=== PATIENT | female | born 1970 | race Caucasian/White ===

== ENCOUNTER 2019-01-29 13:02 | Inpatient (IN) | payer SELFPAY ==
[~2019-01-29] VITALS: Ht 154.9 cm; Wt 88.9 kg
[2019-01-29] MEDS ORDERED: SODIUM CHLORIDE 0.9% 500 ML IVB ONE (13:23)
[2019-01-29] MEDS ORDERED: PANTOPRAZOLE 40 MG/10 ML VIAL INJ IV STA (13:23)
[2019-01-29] MEDS ORDERED: MORPHINE SULFATE 4 MG/ML SYR/VIAL IV ONE ×2 (13:30→17:00)
[2019-01-29] MEDS ORDERED: ONDANSETRON HCL 4 MG/2 ML VIAL IV ONE ×2 (13:30→17:00)
[2019-01-29 13:41] LABS: Basophils # (auto) 0.1 uL; Basophils % (auto) 0.6 % (0.0-2.0); Eosinophils # (auto) 0.1 uL; Eosinophils % (auto) 0.5 % (0.0-7.0); Hematocrit 44.8 % (36.0-46.0); Hemoglobin 14.9 g/dL (12.2-16.2); Lymphocytes # (auto) 1.8 uL; Lymphocytes % (auto) 12.6 % (10.0-50.0); Mean Corpuscular Hemoglobin 30.4 pg (28.0-32.0); Mean Corpuscular Hgb Conc. 33.3 g/dL (32.0-36.0); Mean Corpuscular Volume 91.4 fL (80.0-100.0); Monocytes # (auto) 0.6 uL; Monocytes % (auto) 3.8 % (0.0-12.0); Neutrophils % (auto) 82.5 % (37.0-80.0); Nucleated Red Blood Cells % 0.1 %; Platelet Count (auto) 402 10^3/uL (140-450); Red Blood Cells 4.91 10^6/uL (4.0-5.20); Red Cell Distribution Width 14.2 % (11.8-14.3); White Blood Cell 14.6 10^3/uL (4.4-10.8)
[2019-01-29 14:01] LABS: Albumin 3.8 g/dL (3.4-5.0); Calcium 9.4 mg/dL (8.5-10.1); Potassium 4.6 mmol/L (3.5-5.1)
[2019-01-29 14:05] LABS: Bilirubin, Total 0.5 mg/dL (0.2-1.0); Total Protein 8.2 g/dL (6.4-8.2)
[2019-01-29 16:59] LABS: Urine Bacteria FEW /hpf (None Seen); Urine Blood Negative /uL (Negative); Urine Specific Gravity 1.011 (1.001-1.035); Urine WBC 1 /hpf (0 - 5)
[2019-01-29] MEDS ORDERED: IPRATROPIUM BROM 0.5 MG/2.5ML INH SOL NEB PRN (17:15)
[2019-01-29] MEDS ORDERED: ONDANSETRON HCL 4 MG/2 ML VIAL IV PRN (17:15)
[2019-01-29] MEDS ORDERED: ALBUTEROL SULF 2.5 MG/0.5ML(0.5%) NEB SOLN NEB PRN (17:15)
[2019-01-29] MEDS ORDERED: NITROGLYCERIN 0.4 MG SL TAB SL PRN (17:15)
[2019-01-29] MEDS ORDERED: MORPHINE SULF INJ 2 MG/ML SYRINGE 1ML IV PRN (17:15)
[2019-01-29] MEDS ORDERED: LEVOFLOXACIN 500MG 100 ML IV ONE (17:15)
[2019-01-29] MEDS: D5W/SOD CHL 0.45% 1,000 ML IV SCH (17:22)
[2019-01-29 19:00] VITALS: BP 133/72
--- NOTE | 2019-01-29 19:05 | NUR ---
PT ASSESSED FOR PRN TX. PT DENIES ANY SOB AT THIS TIME. TX IS NOT INDICATED. PT IS AWARE TO PAGE IF TX IS NEEDED OR BECOMES SOB. HR 70 RR 18 POX 93% ON 3 LPM VIA NC. B/S CLEAR.
--- NOTE | 2019-01-29 19:30 | NUR ---
MS admit from ER MAGNOLIAHERRERA admitted to tele/MS after SBAR received. Patient oriented to FRANCES GLEASON, RN primary RN, [facility], 296 room, A bed, and unit policies regarding patient care and visiting hours. Patient weighed by bedscale and encouraged to call if they need something. All questions and concerns addressed, patient verbalized understanding. at bedside. Patient complain of pain but not pain medications due at the moment.
[2019-01-29 19:37] VITALS: BP 121/71
[2019-01-29] MEDS ORDERED: SERT100T PO (20:31)
[2019-01-29] MEDS: MORPHINE SULF INJ 2 MG/ML SYRINGE 1ML IV PRN (21:11)
[2019-01-29] MEDS: FAMOTIDINE (10MG/ML) 2ML VL IV SCH (21:11)
[2019-01-29] MEDS: metroNIDAZOLE 500MG/100ML 100 ML IV SCH (21:11)
[2019-01-29 22:00] VITALS: BP 133/72
[2019-01-30] MEDS: D5W/SOD CHL 0.45% 1,000 ML IV SCH ×3 (01:15→20:47)
[2019-01-30 05:08] VITALS: BP 119/66
[2019-01-30] MEDS: metroNIDAZOLE 500MG/100ML 100 ML IV SCH ×3 (05:42→22:06)
[2019-01-30 06:21] LABS: Basophils # (auto) 0 uL; Basophils % (auto) 0.4 % (0.0-2.0); Eosinophils # (auto) 0.2 uL; Eosinophils % (auto) 1.6 % (0.0-7.0); Hematocrit 41.6 % (36.0-46.0); Hemoglobin 14.2 g/dL (12.2-16.2); Lymphocytes # (auto) 1.6 uL; Lymphocytes % (auto) 13.7 % (10.0-50.0); Mean Corpuscular Hemoglobin 30.8 pg (28.0-32.0); Mean Corpuscular Hgb Conc. 34.1 g/dL (32.0-36.0); Mean Corpuscular Volume 90.5 fL (80.0-100.0); Monocytes # (auto) 0.9 uL; Monocytes % (auto) 7.2 % (0.0-12.0); Neutrophils # (auto) 9.2 uL; Neutrophils % (auto) 77.1 % (37.0-80.0); Nucleated Red Blood Cells % 0.3 %; Platelet Count (auto) 312 10^3/uL (140-450); Red Cell Distribution Width 13.7 % (11.8-14.3)
[2019-01-30 06:39] LABS: BUN/Creatinine Ratio 9.9; Calcium 8.8 mg/dL (8.5-10.1)
--- NOTE | 2019-01-30 07:30 | NUR ---
Received report from shift production associate RN. Assumed care of patient resting with eyes closed but easily aroused. No S/S of distress, denies SOB or pain. Instructed on POC and to call for assist PRN, will continue to monitor for changes Q1hr and PRN. Bed placed in lowest position, and call light within reach.
[2019-01-30 08:00] VITALS: BP 105/56
[2019-01-30 09:00] VITALS: BP 105/56
--- NOTE | 2019-01-30 09:35 | NUR ---
patient currently taken down for a procedure at this time.
[2019-01-30] MEDS ORDERED: LEVOFLOXACIN 500MG 100 ML IV SCH (10:00)
--- NOTE | 2019-01-30 10:21 | NUR ---
Respiratory note: WENT TO ASSESSED PT, PT NOT IN ROOM. WILL CHECK BACK LATER.
[2019-01-30] MEDS: MORPHINE SULF INJ 2 MG/ML SYRINGE 1ML IV PRN ×2 (11:08→20:47)
--- NOTE | 2019-01-30 11:09 | NUR ---
Patient still off unit for a hidal scan procedure. Will resume daily meds upon return to unit.
[2019-01-30] MEDS: FAMOTIDINE (10MG/ML) 2ML VL IV SCH ×2 (12:09→22:06)
--- NOTE | 2019-01-30 12:15 | NUR ---
PATIENT SEEN BY DR. KO. PATIENT'S DIET CHANGED TO CLEAR LIQUID TODAY 01/30/19 AND NPO ON 01/31/19 MIDNIGHT FOR PROCEDURE ON Tuesday02/01/19. PATIENT EDUCATED ON MAINTAINING CLEAR LIQUID DIET. WILL CONTINUE TO MONITOR FOR.
[2019-01-30 12:41] LABS: INR 0.96 (0.9-1.15); Partial Thromboplastin Time 28.6 sec (23.64-32.05)
[2019-01-30 13:00] VITALS: BP 113/56
[2019-01-30] MEDS ORDERED: cefTRIAXone 1GM/50ML D5W 50 ML IV ONE (15:00)
[2019-01-30 17:30] VITALS: BP 140/62
--- NOTE | 2019-01-30 18:16 | NUR ---
RT NOTE: FOUND PT SLEEPING WITH NO DISTRESS NOTED. PT VITALS CHECKED ON ROOM AIR SPO2 97% HR 71 RR 16. BS CLEAR. NO TX INDICATED AT THIS TIME. PT NOTIFIED TO HAVE RT PAGED IF SOB OCCURS. PT VERBALIZED UNDERSTANDING AND WENT BACK TO BED.
--- NOTE | 2019-01-30 18:48 | NUR ---
PATIENT IS CURRENTLY SLEEPING AT THIS TIME. NO SIGNS OF ACUTE DISTRESS NOTED. WILL ENDORSE FURTHER CARE TO DIESEL RETROFIT DESIGNER.
--- NOTE | 2019-01-30 20:10 | NUR ---
open note assumed care of pt. upon entering room pt awake, alert and oriented x4. pt on room air no distress noted. pt updated on plan of care, all questions answered at this time. bed locked, low and 2x rails up. pt pt complaints of abdominal pain 7/0-10 scale. this nurse will medicate per MD and MAR. pt call light in reach, will round q1hr and prn.
--- NOTE | 2019-01-30 21:35 | NUR ---
pt of unit to smoke without notifying nurse, self discontinued her IVF. will page security to check on pt status.
[2019-01-30 21:50] VITALS: BP 102/50
--- NOTE | 2019-01-30 21:55 | NUR ---
pt back to room without issue. this nurse requested that pt make this nurse aware if going to smoke, also, to notify nurse to disconnect IV rather than self to which pt agreed.
[2019-01-31] MEDS: D5W/SOD CHL 0.45% 1,000 ML IV SCH ×3 (01:15→17:15)
[2019-01-31 05:00] VITALS: BP 102/56
[2019-01-31] MEDS: metroNIDAZOLE 500MG/100ML 100 ML IV SCH ×3 (06:18→21:03)
[2019-01-31 06:37] LABS: Basophils # (auto) 0 uL; Basophils % (auto) 0.4 % (0.0-2.0); Eosinophils # (auto) 0.3 uL; Eosinophils % (auto) 2.8 % (0.0-7.0); Hematocrit 38.9 % (36.0-46.0); Hemoglobin 13.6 g/dL (12.2-16.2); Lymphocytes # (auto) 2.3 uL; Lymphocytes % (auto) 19.5 % (10.0-50.0); Mean Corpuscular Hemoglobin 31.6 pg (28.0-32.0); Mean Corpuscular Hgb Conc. 34.9 g/dL (32.0-36.0); Mean Corpuscular Volume 90.5 fL (80.0-100.0); Monocytes # (auto) 0.9 uL; Monocytes % (auto) 7.2 % (0.0-12.0); Neutrophils # (auto) 8.3 uL; Neutrophils % (auto) 70.1 % (37.0-80.0); Platelet Count (auto) 327 10^3/uL (140-450); Red Blood Cells 4.29 10^6/uL (4.0-5.20); Red Cell Distribution Width 13.9 % (11.8-14.3); White Blood Cell 11.8 10^3/uL (4.4-10.8)
[2019-01-31 06:55] LABS: Calcium 8.4 mg/dL (8.5-10.1); Potassium 3.8 mmol/L (3.5-5.1)
[2019-01-31 06:59] LABS: BUN/Creatinine Ratio 9.7
--- NOTE | 2019-01-31 07:30 | NUR ---
Received report from [facility] shift lead RN. Assumed care of patient sleeping at this time but easily aroused by name call. No S/S of distress, denies SOB or pain. Instructed on POC and to call for assist PRN, will continue to monitor for changes Q1hr and PRN. Bed placed in lowest position, and call light within reach.
[2019-01-31] MEDS: cefTRIAXone 1GM/50ML D5W 50 ML IV SCH (08:58)
[2019-01-31 09:00] VITALS: BP_SYST 110; BP_SYST 145; BP_DIAS 54; BP_DIAS 67
[2019-01-31] MEDS: FAMOTIDINE (10MG/ML) 2ML VL IV SCH ×2 (09:06→21:03)
--- NOTE | 2019-01-31 12:17 | NUR ---
DR. NUNEZ SAW PATIENT AT THIS. PATIENT APPEARED TO BE UPSET. ADMITS TO HARM TO SELF BY CUTTING SELF. STATED, "I GET ANGRY, I CAN'T CONTROL MYSELF" AND REQUESTING TO GO HOME. ALSO ADMITTED TO PAST HISTORY OF SELF HARM. PER DR. NUNEZ, PATIENT TO BE PLACED ON ONE ON ONE. TELE PSYCH INITIATED.
[2019-01-31 13:00] VITALS: BP_SYST 122; BP_SYST 146; BP_DIAS 75; BP_DIAS 76
[2019-01-31 17:00] VITALS: BP 156/71
--- NOTE | 2019-01-31 17:07 | NUR ---
PATIENT IS CURRENTLY RECEIVING TELE PSYCH CONSULT AT THIS TIME. REMAINS ON ONE ON ONE PRECAUTION FOR SAFETY. WILL CONTINUE TO MONITOR FOR CHANGES.
--- NOTE | 2019-01-31 18:50 | NUR ---
PATIENT MISTAKENLY REMOVED IV ACCESS, NEW ONE TO BE PLACED DURING COMPOSITION ROLL MAKER AND CUTTER FOR MEDICATION. ENDORSED TO COMPOSITION ROLL MAKER AND CUTTER RN.
--- NOTE | 2019-01-31 20:00 | NUR ---
Respiratory note: PT ASSESSED FOR PRN MED NEB TX. HR 84, RR 14, SPO2 98% ON RA. NO SIGNS OF ANY RESPIRATORY DISTRESS NOTED. ADVISED PT TO CALL IF TX IS NEEDED.
[2019-01-31] MEDS: MORPHINE SULF INJ 2 MG/ML SYRINGE 1ML IV PRN (21:03)
[2019-02-01] MEDS: D5W/SOD CHL 0.45% 1,000 ML IV SCH ×3 (01:15→17:16)
[2019-02-01 05:00] VITALS: BP 103/59
[2019-02-01 05:39] LABS: Basophils # (auto) 0 uL; Basophils % (auto) 0.4 % (0.0-2.0); Eosinophils # (auto) 0.5 uL; Eosinophils % (auto) 4.5 % (0.0-7.0); Hematocrit 39.5 % (36.0-46.0); Hemoglobin 13.6 g/dL (12.2-16.2); Lymphocytes # (auto) 2.5 uL; Lymphocytes % (auto) 24.1 % (10.0-50.0); Mean Corpuscular Hemoglobin 31.4 pg (28.0-32.0); Mean Corpuscular Hgb Conc. 34.5 g/dL (32.0-36.0); Mean Corpuscular Volume 91.2 fL (80.0-100.0); Monocytes # (auto) 0.7 uL; Monocytes % (auto) 6.5 % (0.0-12.0); Neutrophils # (auto) 6.8 uL; Neutrophils % (auto) 64.5 % (37.0-80.0); Platelet Count (auto) 348 10^3/uL (140-450); Red Blood Cells 4.33 10^6/uL (4.0-5.20); Red Cell Distribution Width 13.8 % (11.8-14.3); White Blood Cell 10.5 10^3/uL (4.4-10.8)
[2019-02-01 05:54] LABS: Albumin 2.9 g/dL (3.4-5.0); Calcium 8.4 mg/dL (8.5-10.1); Magnesium 2.1 mg/dL (1.6-2.6)
[2019-02-01 05:56] LABS: INR 0.99 (0.9-1.15); Partial Thromboplastin Time 28.8 sec (23.64-32.05)
[2019-02-01 05:57] LABS: BUN/Creatinine Ratio 7.3
[2019-02-01 06:00] LABS: Bilirubin, Total 0.3 mg/dL (0.2-1.0); Total Protein 6.7 g/dL (6.4-8.2)
[2019-02-01] MEDS: metroNIDAZOLE 500MG/100ML 100 ML IV SCH ×3 (06:43→21:05)
[2019-02-01] MEDS: MORPHINE SULF INJ 2 MG/ML SYRINGE 1ML IV PRN ×2 (06:45→21:01)
--- NOTE | 2019-02-01 08:00 | NUR ---
Respiratory note: ASSESSED PT FOR PRN TX PT WAS AWAKE AND ALERT, NO RESP DISTRESS NOTED. HR 75, RR 16, SPO2 94% ON ROOM AIR. BS ARE CLEAR, NO INDICATION FOR TX AT THIS TIME. PT KNOWS TO HAVE RT PAGED IF TX IS NEEDED.
[2019-02-01 09:00] VITALS: BP 111/63
--- NOTE | 2019-02-01 09:00 | NUR ---
PATIENT STATING SHE WANTS TO GO DOWN TO SMOKE. PATIENT INFORMED OF POSIBBLE RISKS DUE TO HAVING A PROCEDURE TODAY. PATIENT STATED "I DONT CARE, I NEED TO HAVE 1 OR 2 DRAGS". CALLED CAYLA IN PREOP AND INFORMED HER. STATED THAT IS OKAY.
[2019-02-01] MEDS: cefTRIAXone 1GM/50ML D5W 50 ML IV SCH (09:49)
[2019-02-01] MEDS: FAMOTIDINE (10MG/ML) 2ML VL IV SCH ×2 (09:50→21:03)
[2019-02-01] MEDS: SERTRALINE HCL 50 MG TAB PO SCH (10:00)
--- NOTE | 2019-02-01 10:17 | NUR ---
PATIENT WHEELED DOWN TO PRE OP. PATIENT IN NO S/S OF DISTRESS AT THIS TIME. RFA 22 PATENT WITH GOOD BLOOD RETURN OBTAINED. FLUSHED THROUGH. RECIEVED BY DELANEY KUKLARNI.
--- NOTE | 2019-02-01 10:33 | NUR ---
REQUESTED TELE MED RECOMMENDATIONS TO BE SENT AGAIN.
[2019-02-01] MEDS ORDERED: fentaNYL CITRATE 100 MCG/2 ML VL ONE (12:04)
[2019-02-01] MEDS ORDERED: MIDAZOLAM HCL 1MG/1ML-2 ML VIAL ONE (12:04)
[2019-02-01] MEDS ORDERED: MEPERIDINE HCL (50 MG/ML) 1 ML VIAL ONE (12:04)
[2019-02-01] MEDS ORDERED: SUCCINYLCHOLINE CHLORIDE 20 MG/ML 10ML VIAL IV ONE (12:06)
[2019-02-01] MEDS ORDERED: PROPOFOL 10 MG/ML 20 ML IV ONE (12:17)
[2019-02-01] MEDS ORDERED: DexAMETHasone SOD PHOS 10MG/1ML VIAL INJ ONE (12:17)
[2019-02-01] MEDS ORDERED: MIDAZOLAM HCL 1MG/1ML-2 ML VIAL IV PRN (14:30)
[2019-02-01] MEDS ORDERED: ONDANSETRON HCL 4 MG/2 ML VIAL IV PRN (14:30)
[2019-02-01] MEDS ORDERED: LABETALOL HCL 5 MG/ML 4ML SYRINGE IV PRN (14:30)
[2019-02-01] MEDS ORDERED: KETOROLAC TROMETH 30 MG/ML 1ML VIAL IV ONE (14:30)
[2019-02-01] MEDS ORDERED: ePHEDrine SULFATE 50 MG/ML AMP IV PRN (14:30)
[2019-02-01] MEDS ORDERED: MORPHINE SULFATE 4 MG/ML SYR/VIAL IV PRN (14:30)
[2019-02-01] MEDS ORDERED: HYDROmorphone HCL 2 MG/ML VL IV PRN (14:30)
[2019-02-01] MEDS ORDERED: KETOROLAC TROMETH 30 MG/ML 1ML VIAL ONE (14:34)
--- NOTE | 2019-02-01 15:10 | NUR ---
BARBARA SCHMIDT OF RECOMMENDATIONS FROM TEL PSYCH. STATED OK TO MOVE PATIENT TO NON SITTER ROOM.
--- NOTE | 2019-02-01 15:11 | NUR ---
PATIENT BROUGHT UP BACK TO THE FLOOR. PATIENT COMPLAINING OF PAIN 7/10 TO ABDOMEN. ABDOMINAL BINDER IN PLACE. ASSESSED SURGICAL SITE. [address] AND LEFT RAMON DRAIN PATENT. ABDOMEN SOFT AND TENDER. VITAL SIGNS HR 59 BP 114/63 O2 99% ON 2L NC. WILL CONTINUE TO MONITOR.
--- NOTE | 2019-02-01 15:30 | NUR ---
IS PROVIDED TO PATIENT WITH EDUCATION AND PURPOSE. RETURN DEMONSTRATION PROVIDED 1500ML.
[2019-02-01 17:00] VITALS: BP 105/51
--- NOTE | 2019-02-01 18:45 | NUR ---
patient up and ambulating. steady gait. no s/s of distress.
--- NOTE | 2019-02-01 19:13 | NUR ---
5ML FROM RAMON DRAIN OF SEROSANGUINEOUS FLUID.
--- NOTE | 2019-02-01 19:46 | NUR ---
Respiratory note: AT BEDSIDE TO ASSESS PT FOR PRN TXS, TX NOT INDICATED AT THIS TIME. BS ARE CLEAR T/O. POX 94-96 % ON RA, HR 75-78. PT AWARE I CAN BE PAGED AT ANY TIME. RT NAME AND PAGER ASSIGNMENT WRITTEN ON PTS ROOM BOARD. WILL CONTINUE TO MONITOR.
--- NOTE | 2019-02-01 19:50 | NUR ---
Opening Shift Note Assumed care of patient, awake and alert, oriented x 4. On room air with even and unlabored respirations, no S/S of distress or SOB. Patient is s/p open cholecystectomy, abd incisions x 3 clean, dry, and intact, RAMON drain left abd incision secured and intact with approximately 5ml serosanguineous drainage and RAMON bulb to suction. Abd binder on. patient reports tolerating dinner well, denies nausea. Patient reports burping and ambulating independently with steady gait to the bathroom s/p surgery. IV intact and patent infusing IVF per orders. Bed low locked position with side rails up x 2 and call light within reach. Instructed on POC and to call for assist PRN, will continue to monitor for changes Q1hr and PRN.
[2019-02-01 20:00] VITALS: BP 109/56
[2019-02-01 22:00] VITALS: BP 109/56
[2019-02-02] MEDS: MORPHINE SULF INJ 2 MG/ML SYRINGE 1ML IV PRN ×4 (01:42→20:54)
[2019-02-02 01:46] VITALS: BP 109/56
[2019-02-02] MEDS: D5W/SOD CHL 0.45% 1,000 ML IV SCH ×3 (04:44→18:23)
[2019-02-02 05:00] VITALS: BP 97/44
[2019-02-02] MEDS: metroNIDAZOLE 500MG/100ML 100 ML IV SCH ×3 (06:00→20:55)
[2019-02-02 06:36] LABS: Basophils # (auto) 0 uL; Basophils % (auto) 0.2 % (0.0-2.0); Eosinophils # (auto) 0 uL; Hematocrit 38.8 % (36.0-46.0); Lymphocytes # (auto) 0.8 uL; Lymphocytes % (auto) 5.1 % (10.0-50.0); Mean Corpuscular Hgb Conc. 33.6 g/dL (32.0-36.0); Mean Corpuscular Volume 92.3 fL (80.0-100.0); Monocytes # (auto) 0.5 uL; Neutrophils # (auto) 14.4 uL; Neutrophils % (auto) 91.7 % (37.0-80.0); Platelet Count (auto) 358 10^3/uL (140-450); Red Cell Distribution Width 13.7 % (11.8-14.3); White Blood Cell 15.7 10^3/uL (4.4-10.8)
--- NOTE | 2019-02-02 06:54 | NUR ---
EMPTIED 10ML FROM RAMON DRAIN OF SEROSANGUINEOUS FLUID. RAMON BULB TO SUCTION
[2019-02-02 06:55] LABS: BUN/Creatinine Ratio 7.9; Calcium 8.6 mg/dL (8.5-10.1); Potassium 4.4 mmol/L (3.5-5.1)
--- NOTE | 2019-02-02 07:01 | NUR ---
Closing Note patient resting in bed with even and unlabored respirations, no s/s of distress. RAMON drain secured and intact, RAMON bulb to suction. Abd binder on. IV intact and patent infusing D5W 0.45% NS at 75 ml/hr. Endorsed care to day shift RN.
[2019-02-02 08:35] VITALS: BP 135/75
--- NOTE | 2019-02-02 09:21 | NUR ---
PT. ASSESSED FOR PRN. MN. TX., NO RESP. DISTRESS OR SOB NOTED. BS. ARE CLEAR AND DIMINISHED. WE=127,RR= 18, SP02=94% ON RA. TX. NOT INDICATED AT THIS TIME, PT. INSTRUCTED TO CALL IF NEED. NO TX. GIVEN AT THIS TIME.
[2019-02-02] MEDS: cefTRIAXone 1GM/50ML D5W 50 ML IV SCH (09:28)
[2019-02-02] MEDS: SERTRALINE HCL 50 MG TAB PO SCH (09:29)
[2019-02-02] MEDS: FAMOTIDINE (10MG/ML) 2ML VL IV SCH ×2 (09:29→20:54)
--- NOTE | 2019-02-02 12:00 | NUR ---
IV insertion IV access obtained, via clean sterile technique by inserting 22 gauge catheter at DAYSI after 1 attempt(s). IV secured properly. No trauma to site. Patient tolerated well. LH 20 GAUGE DC'D TO INFILTRATION PATIENT TOLERATED WELL. NOTE:
--- NOTE | 2019-02-02 13:16 | NUR ---
PT HAS NOT BEEN IN ROOM TWICE WHEN TRYING TO ATTEMPT 1300 VITAL SIGNS.
--- NOTE | 2019-02-02 13:50 | NUR ---
INFORMED Karma SCHMIDT OF ONE TIME DOSE OF PROZAC RECOMMENDATION FROM TELE PSYCH. NEW ORDER RECEIVED WILL FOLLOW THROUGH.
[2019-02-02] MEDS ORDERED: FLUoxetine HCL 10 MG CAP PO ONE (14:00)
--- NOTE | 2019-02-02 15:32 | NUR ---
Nutrition Assessment Notes please see attached link for complete assessment Est. Needs based on ABW (67 kg): 3847-5974 kcal (20-23 kcal/kgBW), 67-73 gms pro (1.0-1.1 gms/kgBW). Will continue to monitor pertinent labs and reassess nutrient need prn Addendum: 02/02/19 at [address] Amended: Links added.
[2019-02-02 17:00] VITALS: BP 108/44
[2019-02-02] MEDS: diphenhdrAMINE HCL 25 MG CAP PO PRN (19:04)
--- NOTE | 2019-02-02 19:05 | NUR ---
15ML OF SEROSANGUINEOUS FLUID EMPTIED FROM LEFT RAMON DRAIN. PATIENT TOLERATED WELL.
[2019-02-02 20:00] VITALS: BP 109/56
--- NOTE | 2019-02-02 20:15 | NUR ---
Opening Note pt in supine position in hospital bed. A&Ox4. respirations even and nonlabored on room air. J/P drain in place. 22g to the rt upper arm. pt states passing gas today. abdominal binder in place. call light within reach, and bed locked low position.
[2019-02-02 23:18] VITALS: BP 117/55
[2019-02-03 05:14] VITALS: BP 114/52
[2019-02-03] MEDS: D5W/SOD CHL 0.45% 1,000 ML IV SCH ×3 (05:48→17:15)
[2019-02-03] MEDS: metroNIDAZOLE 500MG/100ML 100 ML IV SCH ×2 (05:50→13:35)
[2019-02-03] MEDS: MORPHINE SULF INJ 2 MG/ML SYRINGE 1ML IV PRN ×3 (05:51→11:59)
[2019-02-03 06:15] LABS: Basophils # (auto) 0.1 uL; Basophils % (auto) 0.4 % (0.0-2.0); Eosinophils # (auto) 0.1 uL; Eosinophils % (auto) 0.9 % (0.0-7.0); Hematocrit 36.4 % (36.0-46.0); Lymphocytes # (auto) 2.3 uL; Lymphocytes % (auto) 16.7 % (10.0-50.0); Mean Corpuscular Hemoglobin 30.5 pg (28.0-32.0); Mean Corpuscular Hgb Conc. 33.1 g/dL (32.0-36.0); Mean Corpuscular Volume 92.4 fL (80.0-100.0); Monocytes # (auto) 0.8 uL; Monocytes % (auto) 6.1 % (0.0-12.0); Neutrophils # (auto) 10.3 uL; Neutrophils % (auto) 75.9 % (37.0-80.0); Platelet Count (auto) 374 10^3/uL (140-450); Red Blood Cells 3.94 10^6/uL (4.0-5.20); Red Cell Distribution Width 13.9 % (11.8-14.3); White Blood Cell 13.6 10^3/uL (4.4-10.8)
[2019-02-03 06:32] LABS: BUN/Creatinine Ratio 14.1; Calcium 8.2 mg/dL (8.5-10.1)
--- NOTE | 2019-02-03 06:45 | NUR ---
EMPTIED 20ML FROM RAMON DRAIN OF SEROSANGUINEOUS FLUID. RAMON BULB TO SUCTION
--- NOTE | 2019-02-03 06:52 | NUR ---
Closing Note patient resting in bed with even and unlabored respirations, no s/s of distress. RAMON drain secured and intact, RAMON bulb to suction. Abd binder on. IV intact and patent infusing D5W 0.45% NS at 125 ml/hr. Endorsed care to day shift RN.
[2019-02-03 08:59] VITALS: BP 118/64
[2019-02-03 09:00] VITALS: BP 115/70
[2019-02-03] MEDS: FAMOTIDINE (10MG/ML) 2ML VL IV SCH (09:19)
[2019-02-03] MEDS: cefTRIAXone 1GM/50ML D5W 50 ML IV SCH (09:19)
[2019-02-03] MEDS: SERTRALINE HCL 50 MG TAB PO SCH ×2 (09:20→09:21)
--- NOTE | 2019-02-03 10:29 | NUR ---
RT NOTE: PRN BREATHING TX. NOT INDICATED AT THIS TIME. NO S/S OF RESPIRATORY DISTRESS NOTED. PT. SLEEPING. PT. HR 72, RR 14, POX 91% R/A.
[2019-02-03 13:00] VITALS: BP 125/72
[2019-02-03] MEDS: diphenhdrAMINE HCL 25 MG CAP PO PRN (14:04)
[2019-02-03 16:39] VITALS: BP 124/85
--- NOTE | 2019-02-03 16:45 | NUR ---
PT REMOVED IV HERSELF. SAID SHE "JUST WANTED TO GO DOWNSTAIRS AND DIDNT THINK IT WOULD BLEED THIS MUCH". PRESSURE DRESSING APPLIED.
--- NOTE | 2019-02-03 17:00 | NUR ---
PT LEFT FACILITY. SAID SHE WOULD WAIT IN HUSBANDS CAR. REFUSED TO HAVE SURGICAL SITE PHOTOGRAPHED. WILL RETURN AND SIGN DISCHARGE PAPERWORK.
--- NOTE | 2019-02-03 17:39 | NUR ---
DISCHARGE Discharge instructions given as ordered. Encourage to follow up with PMD as instructed. All questions and concerns addressed. Patient verbalized understanding. Medication reconciliation form completed and copy given to patient. Patient left with all personal belongings, accompanied by family member. No distress noted at time of departure.
== END 2019-02-03 18:00 | disposition home or self-care (01) | DRG 415 ==
LOC: ER 13:11 → OVERFLOW 13:12 → WEST WING 19:00
PROVIDERS: ADMIT Nurse Practitioner Acute Care; ATTEND Internal Medicine
PROC: 0FJ44ZZ Inspection of Gallbladder, Percutaneous Endoscopic Approach (ICD-10-PCS; 2019-02-01)
PROC: 0FT40ZZ Resection of Gallbladder, Open Approach (ICD-10-PCS; principal; 2019-02-01 12:08)
DX: K80.00 Calculus of gallbladder with acute cholecystitis without obstruction (principal); E87.1 Hypo-osmolality and hyponatremia; E66.9 Obesity, unspecified; F17.210 Nicotine dependence, cigarettes, uncomplicated; E11.22 Type 2 diabetes mellitus with diabetic chronic kidney disease; I12.9 Hypertensive chronic kidney disease with stage 1 through stage 4 chronic kidney disease, or unspecified chronic kidney disease; J45.909 Unspecified asthma, uncomplicated; F32.9 Major depressive disorder, single episode, unspecified; F41.9 Anxiety disorder, unspecified; K76.0 Fatty (change of) liver, not elsewhere classified; N18.9 Chronic kidney disease, unspecified; N18.2 Chronic kidney disease, stage 2 (mild); Z53.31 Laparoscopic surgical procedure converted to open procedure; Z83.3 Family history of diabetes mellitus; Z90.5 Acquired absence of kidney; Z90.710 Acquired absence of both cervix and uterus; Z88.6 Allergy status to analgesic agent; Z88.1 Allergy status to other antibiotic agents; Z88.2 Allergy status to sulfonamides; Z68.37 Body mass index [BMI] 37.0-37.9, adult
CPT/HCPCS: 36415; 71046; 76705; 78226; 80048; 80053; 81001; 81025; 82247; 83036; 83690; 83735; 84439; 84443; 85025; 85610; 85730; 86850; 86900; 86901; 87086; 96365; 96375; 96376; C9113; G0378; J0330; J0696; J1100; J1885; J1956; J2250; J2405; J2704; J3490